=== PATIENT | male | born 1950 | race Caucasian/White ===

== ENCOUNTER 2021-01-26 14:44 | Emergency (ER) | payer MEDICARE ==
[~2021-01-26 14:44] MED LIST: PERCOCET 5/325 T1 EA PO
[2021-01-26 15:35] LABS: HEMOGLOBIN 12.4 gm/dl (14.0-17.5); RED BLOOD COUNT 4.68 M/UL (4.20-5.50); WHITE BLOOD COUNT 16.8 K/UL (4.5-11.0)
[2021-01-26 16:02] LABS: BUN/CREATININE RATIO 18 (0-10)
== END 2021-01-26 19:16 | disposition short-term general hospital (02) ==
LOC: ER1 14:44
PROVIDERS: Emergency Medicine
DX: G45.9 Transient cerebral ischemic attack, unspecified (principal); R79.89 Other specified abnormal findings of blood chemistry; I10 Essential (primary) hypertension; Z86.73 Personal history of transient ischemic attack (TIA), and cerebral infarction without residual deficits; Z20.822 Contact with and (suspected) exposure to COVID-19
CPT/HCPCS: 36415; 70450; 71045; 80053; 81001; 82550; 82553; 82803; 82962; 83605; 83690; 83735; 83874; 83880; 84100; 84439; 84443; 84484; 85025; 85610; 85730; 87040; 87077; 87086; 87186; 93005; 96365; 96375; 99285; J0696; J2270; J2405; U0002